=== PATIENT | female | born 1950 ===

== ENCOUNTER 2018-07-26 14:47 | Outpatient (CLI) | payer MEDICARE ==
--- NOTE | 2018-07-26 17:55 | BD ---
BONE DENSITOMETRY USING DEXA: Date: 07/26/18 HISTORY: Postmenopausal screening for osteoporosis. FINDINGS: Lumbar Spine: BMD (g/cm2) L1 0.763 T-Score: -2.1 Z-Score: -0.5 L2 0.839 T-Score: -1.7 Z-Score: 0.1 L3 0.853 T-Score: -2.1 Z-Score: -0.2 L4 0.750 T-Score: -2.8 Z-Score: -0.9 L1-L4 0.801 T-Score: -2.2 Z-Score: -0.4 Femoral Neck: 0.630 T-Score: -2.0 Z-Score: -0.6 Total Femur: 0.788 T-Score: -1.3 Z-Score: -0.2 The 10 year fracture risk for a major osteoporotic fracture is 10% and for a hip fracture is 1.5%. IMPRESSION: Osteopenia. POS: KRISSY
== END 2018-07-26 14:48 | disposition home or self-care (01) ==
LOC: BICMAMMO 14:47
PROVIDERS: ATTEND Family Medicine
DX: Z12.31 Encounter for screening mammogram for malignant neoplasm of breast (principal); Z78.0 Asymptomatic menopausal state; M85.89 Other specified disorders of bone density and structure, multiple sites
CPT/HCPCS: 77063; 77067; 77080

== ENCOUNTER 2019-12-24 16:48 | Outpatient (CLI) | payer MEDICARE ==
--- NOTE | 2019-12-24 17:30 | RAD ---
PA AND LATERAL CHEST: History: Chest pain FINDINGS: Comparison made with exam of 02-27-04. There is continued elevation of the right hemidiaphragm. The heart size is normal. The aorta is tortu ous. No lobar consolidation, pneumothoraces or pleural effusions are seen. There are degenerative tong nges of the spine. IMPRESSION: No radiographic evidence of acute cardiopulmonary process. POS: OFF
== END 2019-12-24 16:49 | disposition home or self-care (01) ==
LOC: SCSRAD 16:48
PROVIDERS: ATTEND Family Medicine
DX: J18.9 Pneumonia, unspecified organism (principal)
CPT/HCPCS: 71046

== ENCOUNTER 2021-10-05 10:10 | Outpatient (CLI) | payer MEDICARE ==
[2021-10-05 15:12] LABS: #Eosinphils 0.1 thou/uL (0.0-0.7); #Lymphocytes 1.2 thou/uL (1.20-3.40); #Monocytes 0.4 thou/uL (0.11-0.59); #Neutrophils 3.4 thou/uL (1.40-6.50); %Basophils 0.3 % (0.0-1.0); %Eosinophils 1.4 % (0.0-10.0); %Lymphocytes 22.8 % (21.0-51.0); %Monocytes 8.6 % (0.0-10.0); %Neutrophils 66.8 % (42.0-75.0); Hemoglobin 12.4 g/dL (12.0-16.0); Mean Corpuscular HGB CONC 31.9 g/dL (32.0-36.0); Mean Corpuscular Hemoglobin 27.5 pg (27.0-31.0); Mean Corpuscular Volume 86.1 fL (78.0-98.0); Mean Platelet Volume 8.3 fL (7.4-10.4); Platelet Count 294 thou/uL (130-400); RBC Distribution Width 15.2 % (11.5-14.5); Red Blood Cell (RBC) Count 4.53 mill/uL (4.20-5.40)
[2021-10-05 16:09] LABS: ALT (SGPT) 28 U/L (8-55); AST (SGOT) 57 U/L (5-34); Albumin 3.8 g/dL (3.4-4.8); Alkaline Phosphatase 93 U/L (40-110); Anion Gap 14 mmol/L (10-20); BUN (Urea Nitrogen) 8 mg/dL (9.8-20.1); Bilirubin, Total 0.7 mg/dL (0.2-1.2); CRP (Inflammatory) Less than 0.50 mg/dL (= or < 0.5); Calc. Creatinine Clearance 0 mL/min (70-130); Calcium 9.3 mg/dL (7.8-10.44); Carbon Dioxide 25 mmol/L (23-31); Chloride 103 mmol/L (98-107); Glucose 109 mg/dL (80-115); Potassium 4.9 mmol/L (3.5-5.1); Protein, Total 7.8 g/dL (5.8-8.1); Sodium 137 mmol/L (136-145); Uric Acid 3.2 mg/dL (2.6-6.0)
[2021-10-05 16:33] LABS: Free T4 (Free Thyroxine) 0.92 ng/dL (0.70-1.48); Thyroid Stimulating Hormone 2.7926 uIU/mL (0.35-4.94)
[2021-10-07 15:10] LABS: ANA Symphony (Qualitative) POSITIVE (Negative); CCP IgG Antibody 3.4 EliAU/mL (<7 Negative); CENP IgG Antibody 0.9 EliAU/mL (<7 Negative); EliA RAS New Method **** NEW METHOD ****; Jo-1 IgG Antibody Less than 0.3 EliAU/mL (<7 Negative); RNP70 IgG Antibody Less than 0.3 EliAU/mL (<7 Negative); Rheumatoid Factor IgA Antibody 6.5 IU/mL (<14 Negative); Rheumatoid Factor IgM Antibody 8.6 IU/mL (<3.5 Negative); SSB/La IgG Antibody 1.4 EliAU/mL (<7 Negative); Scleroderma-70 IgG Antibody 1.1 EliAU/mL (<7 Negative); Smith D IgG Antibody 4.3 EliAU/mL (<7 Negative); dsDNA IgG Antibody 1.6 IU/mL (<10 Negative)
== END 2021-10-05 10:11 | disposition home or self-care (01) ==
LOC: SCSRAD 10:10
PROVIDERS: ATTEND Family Medicine
DX: J18.9 Pneumonia, unspecified organism (principal); M25.50 Pain in unspecified joint; I51.7 Cardiomegaly
CPT/HCPCS: 36415; 71046; 80053; 83520; 84439; 84443; 84550; 85025; 85652; 86038; 86140; 86200; 86225; 86235